=== PATIENT | male | born 1980 | race Caucasian/White ===

== ENCOUNTER 2019-05-01 13:02 | Outpatient (CLI) | payer BC, SELFPAY ==
--- NOTE | 2019-05-01 | XR_ITS ---
WS: [id number] FOOT LEFT TECHNIQUE: 3 views of the left foot CLINICAL INFORMATION: LEFT FOOT PAIN COMPARISON: None. FINDINGS: No evidence of acute fracture or dislocation. Normal tarsal metatarsal alignment. Normal calcaneus. N ormal visualized talar dome. No acute findings. XR/XR foot LT min 3V* [id number] IMPRESSION: Normal left foot.
== END 2019-05-01 13:03 | disposition home or self-care (01) ==
LOC: RADOUTREAD 05-02 08:14
PROVIDERS: PCP Family Medicine; Visit Provider Nurse Practitioner Family
DX: Z76.89 Persons encountering health services in other specified circumstances (principal)

== ENCOUNTER → 2020-02-14 11:05 | Outpatient (BNVA) | payer SELFPAY | PROVIDERS: PCP Family Medicine; Visit Provider Nurse Practitioner Family | DX: I10 Essential (primary) hypertension (principal); J02.9 Acute pharyngitis, unspecified; G43.809 Other migraine, not intractable, without status migrainosus | CPT/HCPCS: 87071; 87880 ==

== ENCOUNTER 2020-06-29 20:04 | Emergency (ER) | payer SELFPAY ==
[2020-06-29 20:24] VITALS: BP 166/100; PULSE 78; RESP 18; TEMP 36.2; O2SAT 98; BMI 31.1
--- NOTE | 2020-06-29 23:12 | CTR_ITS ---
PROCEDURE INFORMATION: Exam: CT Abdomen And Pelvis With Contrast Exam date and time: 06/29/2020 11:58 PM Age: 39 years old Clinical indication: Abdominal pain; Localized; Patient HX: C/O lower abd pain w n/v; Additional info: Lower abdominal pain TECHNIQUE: Imaging protocol: Computed tomography of the abdomen and pelvis with contrast. Radiation optimization: All CT scans at this facility use at least one of these dose optimization techniques: automated exposure control; mA and/or kV adjustment per patient size (includes targeted exams where dose is matched to clinical indication); or iterative reconstruction. Contrast material: OMNI 300; Contrast volume: 95 ml; Contrast route: INTRAVENOUS (IV); COMPARISON: No relevant prior studies available. RADIATION DOSE METRICS: Total DLP (mGy-cm): 1870.1 FINDINGS: Liver: Normal. No mass. Gallbladder and bile ducts: Normal. No calcified stones. No ductal dilation. Pancreas: Normal. No ductal dilation. Spleen: Normal. No splenomegaly. Adrenal glands: Normal. No mass. Kidneys and ureters: Normal. No hydronephrosis. Stomach and bowel: Unremarkable. No obstruction. No mucosal thickening. Appendix: The appendix is visualized and is normal in configuration. Intraperitoneal space: Unremarkable. No free air. No significant fluid collection. Vasculature: Unremarkable. No abdominal aortic aneurysm. Lymph nodes: Unremarkable. No enlarged lymph nodes. Urinary bladder: Unremarkable as visualized. Reproductive: Unremarkable as visualized. Bones/joints: Unremarkable. No acute fracture. Soft tissues: Unremarkable. CT/CT abdomen pelvis w con* [id number] IMPRESSION: There are no acute abdominal findings. Radiation Dose CTDIVOL = (mGy): DLP = 1870.1 (mGy-cm)
--- NOTE | 2020-06-29 23:14 | W.ED.NAVMDI ---
HPI - Nausea/Vomiting/Diarrhea General: Chief complaint: Headache Stated complaint: FEVER, VOMITING, CANT EAT OR DRINK Time Seen by Provider: 06/29/20 23:05 Source: patient Mode of arrival: ambulatory Limitations: no limitations History of Present Illness: HPI Narrative: 39-year-old male patient presents to the emergency department with complaints of nausea vomiting since this morning. He reports not able to hold down his migraine or hypertensive medication. He reports fever earlier, he is afebrile upon exam. He reports back pain and lower abdominal pain. Worse with movement. He denies history of abdominal surgeries, last ate last night. He reports was able to drink a Sprite while in his car, he reports has a burning sensation in his stomach. He reports history of ulcers. He is also complaining of a headache upon exam. He reports his headache is not bad, rates as 2 out of a 10. He denies photophobia, phonophobia or neck pain. 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) Associated symtoms: Reports bloating, decreased urine output, fevers/chills, anorexia, malaise and nausea; Denies anxiety, chest pain, dysuria, headache(s) or palpitations Treatment prior to arrival: none Review of Systems General: Reports: 10 or more systems reviewed and unremarkable except in HPI and below Const: Reports: malaise Eyes: Denies: blurry vision or eye redness ENMT: Denies: throat pain, dental pain or disequilibrium Card: Denies: chest pain, palpitations or irregular heart rhythm Resp: Denies: dyspnea, productive cough, non-productive cough or wheezing GI: Reports: abdominal pain, nausea, vomiting and bloating; Denies: hematemesis, coffee ground emesis, dysphagia, heartburn, diarrhea, constipation, GI cramping or belching : Denies: difficulty urinating, dysuria or urinary urgency Musc: Reports: back pain (lower); Denies: neck pain, joint pain, joint swelling, joint stiffness or muscle weakness Skin/Breast: Denies: rash or pruritus Neuro: Denies: headache(s), weakness in extremities or behavioral changes Psych: Denies: anxiety, depression, mood swings, panic attacks or irritability Juwan/Lymph: Denies: easy bruising Physical Exam Const: COMMON NORMALS: no acute distress, patient oriented x3, alert and well nourished (appears not feeling well) GENERAL APPEARANCE: cooperative, well kempt and well developed ORIENTATION/CONSCIOUSNESS: Yes awake, Yes oriented to person, Yes oriented to place and Yes oriented to time HENMT: COMMON NORMALS: normocephalic, atraumatic, Normal external nose present and moist oral mucous membranes HEAD & SCALP: normal to inspection, normocephalic and atraumatic; no Acrocyanosis present FACE & SINUS: sinuses nontender and face symmetric; no ecchymosis, no erythema and no Acrocyanosis present NOSE: Normal external nose present, Normal nares present and No nasal polyps present MOUTH: lip normal, tongue normal and moist mucous membranes abnormal (dry) THROAT: posterior oropharynx normal, tonsils normal and uvula midline Eye: COMMON NORMALS: Equal, round and reactive pupils present and EOMs intact bilaterally GENERAL EYE: appearance normal, both eyes and all related structures PUPIL: Yes Equal, round and reactive pupils present Neck/C-Spine: COMMON NORMALS: full ROM, no lymphadenopathy and supple GENERAL: Yes normal visual inspection and Yes trachea midline CERVICAL SPINE: Yes cervical ROM normal Lymph: LYMPHATIC: no lymphadenopathy noted Chest: COMMONS NORMALS: normal inspection of the chest and normal palpation of entire chest wall Resp: COMMON NORMALS: normal respiratory effort, No retractions, No use of accessory muscles and clear to auscultation bilaterally EFFORT & INSPECTION: Yes able to speak in complete sentences, No labored and No audible wheezes AUSCULTATION: clear to auscultation bilaterally Cardio: COMMON NORMALS: regular rate, regular rhythm, S1 normal heart sound present, S2 normal heart sound present and Peripheral pulses 2+ throughout RATE: regular rate RHYTHM: regular rhythm HEART SOUNDS: S1 normal heart sound present and S2 normal heart sound present PERIPHERAL PULSES: Peripheral pulses 2+ throughout GI: COMMON NORMALS: Soft to palpation and No hepatosplenomegaly present INSPECTION: No abdominal wall ecchymosis, No Abdominal wall edema, Yes abdominal distension, No central obesity, No visible herniation and No GI erythema present AUSCULTATION: Yes normoactive bowel sounds PALPATION: Yes Soft to palpation, Yes Tenderness to palpation present (GI) Details: LLQ and RLQ and Yes No hepatosplenomegaly present : BLADDER/KIDNEY EXAM: Yes CVA tenderness bilateral Back/Pelvis: COMMON NORMALS: thoracic and lumbar spine normal to inspection THORACIC SPINE/UPPER BACK: Yes normal to inspection, Yes ROM limited and Yes paraspinal muscle tenderness LUMBAR SPINE/LOWER BACK: Yes normal to inspection, Yes ROM limited and Yes paraspinal muscle tenderness Extremity: COMMON NORMALS: normal to inspection, full ROM, capillary refill normal, no calf tenderness and no pedal edema GENERAL: Yes normal exam except as noted Neuro: JULES COMA SCALE: document GCS findings Jules coma scale eye opening: Spontaneous [place] coma scale verbal response: Orientated Jules coma scale motor response: Obey commands Jules coma scale total score: 15 COMMON NORMALS: patient oriented x3, moves all extremities, no focal motor deficits and deep tendon reflexes 2+ bilaterally SENSORIUM/ORIENTATION: Yes alert, Yes oriented to person, Yes oriented to place and Yes oriented to time CRANIAL NERVES: Yes CN normal except as noted COORDINATION/BALANCE: [id number] test normal SPEECH: speech normal GAIT: Yes Normal gait present MOTOR EXAM: 5/5 motor strength present throughout COORDINATION: [id number] test normal Right pupil size (mm): 4 Left pupil size (mm): 4 Psych: COMMON NORMALS: mental status grossly normal, Normal thought process present, cooperative, normal affect, speech normal and activity/motor behavior normal APPEARANCE: Yes well kempt ACTIVITY/MOTOR BEHAVIOR: Yes appropriate eye contact SPEECH: Yes normal speech THOUGHT PROCESS: Normal thought process present Skin: COMMON NORMALS: no rashes or lesions noted, no wounds, turgor normal, no petechiae and no mottling GENERAL SKIN EXAM: no rashes or lesions noted, elasticity normal and turgor normal Course Vital Signs: Vital signs: Vital Signs Temperature 98.1 F 06/30/20 00:29 Pulse Rate 51 L 06/30/20 01:30 Respiratory Rate 14 06/30/20 00:30 Blood Pressure 138/79 06/30/20 01:30 Pulse Oximetry 99 06/30/20 00:30 MDM - Nausea/Vomiting/Diarrhea MDM Narrative: Medical decision making narrative: 39-year-old male patient presents to the emergency department with 1 day onset nausea vomiting, he reports headache, was not able to take Imitrex due to vomiting. He was not able to tolerate his oral routine medications. Complained of lower pelvic and lower abdominal pain, white blood count 12.4 thousand, lactate 2.0, lipase 25, normal, CT scanning of the abdomen pelvis with IV contrast without acute abnormalities. He received Pepcid and Zofran here in the ED which alleviated nausea. He was able to tolerate p.o. fluid. Urinalysis was obtained, trace bacteria, white blood cells and red blood cells were appreciated. I was not able to rule out prostatitis as he did not complain of urinary symptoms such as dysuria, urinary burning or urinary frequency. I was concern for acute bacterial prostatitis with his complaints of lower abdominal pain, results of urinalysis with bacteria and did not exhibit symptoms of dysuria. He declined rectal exam, he was provided Cipro 500 mg twice daily for 4 weeks with follow-up with his primary care this week. Advised to refrain from greasy fried fatty foods until symptoms have completely resolved and he is feeling well. Prescription of Zofran and Pepcid provided. Advised to push fluids and remain hydrated. Lab Data: Labs: Lab Results 06/29/20 06/29/20 06/29/20 Range/Units 23:55 23:55 23:55 WBC 12.4 H (4.0-10.0) 10^3/ uL RBC 4.74 (4.1-5.3) 10^6/u L Hgb 14.6 (11.7-16.6) g/dL Hct 43.4 (42.0-52.0) % MCV 91.6 (80-94) fL MCH 30.8 (28.0-34.0) pg MCHC 33.6 (30.0-36.0) g/dL RDW 12.6 (12.1-15.1) % Plt Count 313 (130-400) 10^3/c mm MPV 11.2 H (7.4-10.4) fL Neut % (Auto) 84.0 % Lymph % (Auto) 8.6 % Canadian % (Auto) 6.9 % Eos % (Auto) 0.0 % Baso % (Auto) 0.2 % Neut # (Auto) 10.43 H (1.8-7.7) 10^3/u L Lymph # (Auto) 1.1 (0.8-4.8) 10^3/u L Canadian # (Auto) 0.9 (0.2-0.9) 10^3/u L Eos # (Auto) 0.0 (0.0-0.8) 10^3/u L Baso # (Auto) 0.0 (0.0-0.1) 10^3/u L Nucleated RBC % (a uto) 0 % Nucleated RBCs # 0.0 /100WBC Sodium 143 (136-145) mmol/L Potassium 3.7 (3.5-5.1) mmol/L Chloride 106 (98-107) mmol/L Carbon Dioxide 21 L (22-29) mmol/L Anion Gap 19.7 H (5-19) BUN 11 (6-20) mg/dL Creatinine 1.0 (0.7-1.2) mg/dL GFR Calculation 83.6 L (90-130) mL/min Glucose 100 (65-115) mg/dL Calculated Osmolal ity 295 (285-295) mOsm/k g Lactate 2.0 (0.5-2.2) mmol/L Calcium 8.9 (8.5-10.5) mg/dL Total Bilirubin 1.0 (0.15-1.2) mg/dL AST 18 (0-40) U/L ALT 20 (0-41) U/L Alkaline Phosphata se 69 (40-130) IU/L Total Protein 7.4 (6.6-8.7) g/dL Albumin 4.7 (3.5-5.2) g/dL Globulin 2.7 (1.3-4.6) g/dL Lipase 25 (13-60) U/L Urine Color (Yellow) Urine Appearance (CLEAR) Urine pH (5-7) Ur Specific Gravit y (1.005-1.030) Urine Protein (Negative) Urine Glucose (UA) (Normal) Urine Ketones (Negative) Urine Blood (Negative) Urine Nitrate (Negative) Urine Bilirubin (Negative) Urine Urobilinogen (Negative) mg/dL Ur Leukocyte Perla ase (Negative) Urine RBC (0-2) /hpf Urine WBC (0-5) /hpf Ur Squamous Epith Cells (0-5) /hpf Amorphous Sediment Urine Bacteria (NONE) /hpf 06/30/20 Range/Units 01:47 WBC (4.0-10.0) 10^3/ uL RBC (4.1-5.3) 10^6/u L Hgb (11.7-16.6) g/dL Hct (42.0-52.0) % MCV (80-94) fL MCH (28.0-34.0) pg MCHC (30.0-36.0) g/dL RDW (12.1-15.1) % Plt Count (130-400) 10^3/c mm MPV (7.4-10.4) fL Neut % (Auto) % Lymph % (Auto) % Canadian % (Auto) % Eos % (Auto) % Baso % (Auto) % Neut # (Auto) (1.8-7.7) 10^3/u L Lymph # (Auto) (0.8-4.8) 10^3/u L Canadian # (Auto) (0.2-0.9) 10^3/u L Eos # (Auto) (0.0-0.8) 10^3/u L Baso # (Auto) (0.0-0.1) 10^3/u L Nucleated RBC % (a uto) % Nucleated RBCs # /100WBC Sodium (136-145) mmol/L Potassium (3.5-5.1) mmol/L Chloride (98-107) mmol/L Carbon Dioxide (22-29) mmol/L Anion Gap (5-19) BUN (6-20) mg/dL Creatinine (0.7-1.2) mg/dL GFR Calculation (90-130) mL/min Glucose (65-115) mg/dL Calculated Osmolal ity (285-295) mOsm/k g Lactate (0.5-2.2) mmol/L Calcium (8.5-10.5) mg/dL Total Bilirubin (0.15-1.2) mg/dL AST (0-40) U/L ALT (0-41) U/L Alkaline Phosphata se (40-130) IU/L Total Protein (6.6-8.7) g/dL Albumin (3.5-5.2) g/dL Globulin (1.3-4.6) g/dL Lipase (13-60) U/L Urine Color Yellow (Yellow) Urine Appearance Clear (CLEAR) Urine pH 5 (5-7) Ur Specific Gravit y 1.010 (1.005-1.030) Urine Protein Neg (Negative) Urine Glucose (UA) Norm (Normal) Urine Ketones 1+ H (Negative) Urine Blood Neg (Negative) Urine Nitrate Negative (Negative) Urine Bilirubin Neg (Negative) Urine Urobilinogen 1 H (Negative) mg/dL Ur Leukocyte Perla ase Trace H (Negative) Urine RBC 0-4 H (0-2) /hpf Urine WBC 0-4 H (0-5) /hpf Ur Squamous Epith Cells 0-4 H (0-5) /hpf Amorphous Sediment Not Reportable Urine Bacteria Trace (NONE) /hpf Imaging Data^: CT Abd/Pel: Radiologist's impression: [place] [address] CT Scan Report Signed Patient: Tyshawn Pichardo #: [id number] : 1980Acct#:[id number] Age/Sex: 39 / MADM Date: 06/29/20 Loc: ERRoom/Bed: Attending Dr: Ordering Provider/Ordering MD: Yovana Tran Date of Service: 06/29/20 Procedure(s): CT abdomen pelvis w con* [id number] Accession Number(s): [id number] Report Number: [id number] PROCEDURE INFORMATION: Exam: CT Abdomen And Pelvis With Contrast Exam date and time: 06/29/2020 11:58 PM Age: 39 years old Clinical indication: Abdominal pain; Localized; Patient HX: C/O lower abd pain w n/v; Additional info: Lower abdominal pain TECHNIQUE: Imaging protocol: Computed tomography of the abdomen and pelvis with contrast. Radiation optimization: All CT scans at this facility use at least one of these dose optimization techniques: automated exposure control; mA and/or kV adjustment per patient size (includes targeted exams where dose is matched to clinical indication); or iterative reconstruction. Contrast material: OMNI 300; Contrast volume: 95 ml; Contrast route: INTRAVENOUS (IV); COMPARISON: No relevant prior studies available. RADIATION DOSE METRICS: Total DLP (mGy-cm): 1870.1 FINDINGS: Liver: Normal. No mass. Gallbladder and bile ducts: Normal. No calcified stones. No ductal dilation. Pancreas: Normal. No ductal dilation. Spleen: Normal. No splenomegaly. Adrenal glands: Normal. No mass. Kidneys and ureters: Normal. No hydronephrosis. Stomach and bowel: Unremarkable. No obstruction. No mucosal thickening. Appendix: The appendix is visualized and is normal in configuration. Intraperitoneal space: Unremarkable. No free air. No significant fluid collection. Vasculature: Unremarkable. No abdominal aortic aneurysm. Lymph nodes: Unremarkable. No enlarged lymph nodes. Urinary bladder: Unremarkable as visualized. Reproductive: Unremarkable as visualized. Bones/joints: Unremarkable. No acute fracture. Soft tissues: Unremarkable. CT/CT abdomen pelvis w con* [id number] IMPRESSION: There are no acute abdominal findings. Radiation Dose CTDIVOL = (mGy): DLP = 1870.1 (mGy-cm) Dictated By:Tayo Marsh MD Signed By:Tayo Marsh MDSigned Date/Time:06/30/20102 DD/ 1 Discharge Plan Discharge Patient Disposition: Home Clinical Impression: Acute bacterial prostatitis Abdominal pain Qualifiers: Abdominal location: lower abdomen, unspecified Qualified Code(s): R10.30 - Lower abdominal pain, unspecified Nausea & vomiting Qualifiers: Vomiting type: unspecified Vomiting Intractability: intractable Qualified Code(s): R11.2 - Nausea with vomiting, unspecified Condition: Stable Prescriptions: New Zofran 4 mg tablet 4 mg PO Q4H Qty: 10 RF: 0 Pepcid 20 mg tablet 20 mg PO BID Qty: 20 RF: 0 ciprofloxacin HCl 500 mg tablet 500 mg PO BID Qty: 60 RF: 0 Discontinued amoxicillin 875 mg tablet 875 mg PO BID 10 Days Qty: 20 RF: 0 No Action Emgality Pen 120 mg/mL pen injector 120 mg SUBCUT .monthly Qty: 1 RF: 6 celecoxib [Celebrex] 200 mg capsule 200 mg PO DAILY Qty: 30 RF: 3 lisinopril 20 mg tablet 20 mg PO DAILY 90 Days Qty: 90 RF: 1 sumatriptan succinate [Imitrex] 100 mg tablet 100 mg PO .COMPLEX PRN (Reason: migraine headache) 30 Days Qty: 9 RF: 5 Discharge Orders: Discharge ED (Routine); Ordered 06/30/20 Ordered By: Yovana Tran Referrals: Yoli Noland MD [Primary Care Provider] - Discharge Diet: Advance as tolerated and Clear Liquid Discharge Activity: Limit activity as instructed Patient Instructions: Prostatitis (ED), Acute Nausea and Vomiting (ED), Abdominal Pain (ED), Opioid Safety Activity Restrictions/Additional Instructions: rest at home today and tomorrow Follow up with your primary care provider Wednesday if not improving You will need to follow up with [facility] next week for ED follow up to ensure urine is clearing, longer dosing of Cirpo, antibiotic may be needed Return to the ED if worsening symptoms such as continued vomiting with use of anti-nausea medication prescribed Clear liquids then advance as tolerated, Sprite, applesauce, bananas, Popsicle, for 48 hours No work today or tomorrow Coding Level of Care Code ED Electric Motor Winder for Chg Fwd Exam Comprehensive
[2020-06-29] MEDS: famotidine 20 mg/2 mL INJ 40 MG IVP (23:44)
[2020-06-29] MEDS: ondansetron 2 mg/ML SDV 2 mL 4 MG IVP (23:44)
[2020-06-29] MEDS: sodium chloride 0.9% 1,000 ML 999 ML IV (23:45)
[2020-06-30 00:13] LABS: Basophils % 0.2 %; Hematocrit 43.4 % (42.0-52.0); Hemoglobin 14.6 g/dL (11.7-16.6); Lymphocytes # 1.1 10^3/uL (0.8-4.8); Lymphocytes % 8.6 %; Mean Corpuscular HGB Conc 33.6 g/dL (30.0-36.0); Mean Corpuscular Hemoglobin 30.8 pg (28.0-34.0); Mean Corpuscular Volume 91.6 fL (80-94); Mean Platelet Volume 11.2 fL (7.4-10.4); Monocytes # 0.9 10^3/uL (0.2-0.9); Monocytes % 6.9 %; Neutrophils # 10.43 10^3/uL (1.8-7.7); Nucleated Red Blood Cells % 0 %; Platelet Count 313 10^3/cmm (130-400); Red Blood Count 4.74 10^6/uL (4.1-5.3); Red Cell Distribution Width 12.6 % (12.1-15.1); White Blood Count 12.4 10^3/uL (4.0-10.0)
[2020-06-30] MEDS: iohexol 300 mg/mL 100 mL Btl IV (00:16)
[2020-06-30 00:27] LABS: Alanine Aminotransferase 20 U/L (0-41); Albumin Level 4.7 g/dL (3.5-5.2); Alkaline Phosphatase 69 IU/L (40-130); Blood Urea Nitrogen 11 mg/dL (6-20); Calcium 8.9 mg/dL (8.5-10.5); Carbon Dioxide 21 mmol/L (22-29); Chloride 106 mmol/L (98-107); Globulin 2.7 g/dL (1.3-4.6); Glomerular Filtration Rate 83.6 mL/min (90-130); Glucose 100 mg/dL (65-115); Lipase 25 U/L (13-60); Osmolality Calculated 295 mOsm/kg (285-295); Sodium 143 mmol/L (136-145); Total Protein 7.4 g/dL (6.6-8.7)
[2020-06-30 00:29] VITALS: PULSE 48; RESP 13; TEMP 36.7; O2SAT 96
[2020-06-30 00:30] VITALS: BP 142/80; RESP 14; O2SAT 99
[2020-06-30 00:35] LABS: Anion Gap 19.7 (5-19); Aspartate Amino Transferase 18 U/L (0-40); Potassium 3.7 mmol/L (3.5-5.1)
[2020-06-30] MEDS: ketorolac 30 mg/mL INJ IVP (01:17)
[2020-06-30 01:30] VITALS: BP 138/79; PULSE 51
[2020-06-30 01:57] LABS: Urine Appearance Clear (CLEAR); Urine Color Yellow (Yellow); pH Urine 5 (5-7)
[2020-06-30 01:58] LABS: Add Urine Microscopic? YES; Bilirubin Urine Neg (Negative); Blood Urine Neg (Negative); Glucose Urine UA Norm (Normal); Ketones Urine 1+ (Negative); Leukocyte Esterase Urine Trace (Negative); Nitrate Urine Negative (Negative); Protein Urine Neg (Negative); RBC Urine 0-4 /hpf (0-2); Squamous Epithelial Cell Urine 0-4 /hpf (0-5); Urobilinogen Urine 1 mg/dL (Negative); WBC Urine 0-4 /hpf (0-5)
[2020-06-30 01:59] LABS: Add Urine Culture? No; Bacteria Urine TRACE /hpf
[2020-06-30] MEDS: ciprofloxacin 500 mg Tablet PO (02:05)
[2020-06-30 02:29] VITALS: RESP 15; O2SAT 100
== END 2020-06-30 02:31 | disposition home or self-care (01) ==
PROVIDERS: Emergency Provider Nurse Practitioner Family; PCP Family Medicine
DX: N41.0 Acute prostatitis (principal); B96.89 Other specified bacterial agents as the cause of diseases classified elsewhere
CPT/HCPCS: 74177; 80053; 81001; 83605; 83690; 85025; 96361; 96374; 96375; 99284; J1885; J2405; J3490; J7030; Q9967

== ENCOUNTER 2022-01-03 18:33 | Inpatient (IN) | payer OTHER, SELFPAY ==
[2022-01-03 18:47] VITALS: BP 158/99; PULSE 79; RESP 17; TEMP 36.5; O2SAT 98; BMI 29.1
--- NOTE | 2022-01-03 18:55 | W.ED.EXTPRO ---
HPI - Extremity Problem General: Chief complaint: Extremity Injury, Upper Stated complaint: left hand swelling Time Seen by Provider: 01/03/22 18:55 History of Present Illness: Mr. Pichardo is a 41-year-old male with history of hypertension not currently on antihypertensives who presents to the emergency department due to concern over arm infection. Apparently at work 4 days ago he cut his hand on a piece of metal. Throughout the night he had increased swelling that is since progressed associated with redness. He was seen and received tetanus shot and also received a prescription for Bactrim which he has been taking for approximately 3 doses so far. Despite this redness continues to spread along the swelling. He has had fevers and chills as well as some nausea and vomiting. Intensity symptoms is moderate. Course has worsened. No other specific changes in health, exacerbating, or alleviating factors identified. Onset (ago): day(s) Location: left and upper extremity Radiation: proximal Exacerbating factors: range of motion and palpation Associated symptoms: Reports fever(s) and other Review of Systems General: Reports: 10 or more systems reviewed and unremarkable except in HPI and below Const: Reports: fever(s) PFSH ED PFSH: Medical History Hypertension Surgical History History of surgery on lower extremity Social History Smoking and tobacco status: never smoked Physical Exam Const: COMMON NORMALS: alert GENERAL APPEARANCE: cooperative and well developed HENMT: COMMON NORMALS: normocephalic and atraumatic HEAD & SCALP: normocephalic and atraumatic Eye: COMMON NORMALS: conjunctivae normal CONJUNCTIVA: Yes conjunctivae normal SCLERA: sclerae normal Neck/C-Spine: COMMON NORMALS: supple GENERAL: Yes trachea midline Resp: COMMON NORMALS: clear to auscultation bilaterally EFFORT & INSPECTION: Yes able to speak in complete sentences AUSCULTATION: clear to auscultation bilaterally Cardio: COMMON NORMALS: regular rate and regular rhythm RATE: regular rate RHYTHM: regular rhythm GI: COMMON NORMALS: Soft to palpation PALPATION: Yes Soft to palpation and No Tenderness to palpation present (GI) Extremity: NARRATIVE EXTREMITY EXAM: Significant swelling and erythema with the swelling primarily located on the dorsal aspect of the hand mostly sparing all but the proximal digits. There is a laceration approximately 1 cm with overlying scab just over the second PIP region. erythema tracks all the way to elbow with mild streaking proximal to this mostly on the bicep surface. There is associated warmth and tenderness with palpation and range of motion. Pulses are intact. No sensory compromise or obvious motor compromise. GENERAL: Yes normal exam except as noted and Yes edema Neuro: COMMON NORMALS: moves all extremities SENSORIUM/ORIENTATION: Yes alert and No Orientation impaired Psych: COMMON NORMALS: mental status grossly normal and Normal thought process present THOUGHT PROCESS: Normal thought process present Course Vital Signs: Vital signs: Vital Signs Temperature 98.3 F 01/06/22 16:00 Pulse Rate 48 L 01/06/22 16:00 Respiratory Rate 16 01/06/22 16:00 Blood Pressure 168/93 01/06/22 16:00 Pulse Oximetry 98 01/06/22 16:00 Oxygen Delivery Me thod 01/06/22 11:59 MDM - Extremity (Nontraumatic) Medical Decision Making 41-year-old gentleman presenting with arm swelling after laceration in the elbow likely contaminated environment. Patient previously seen and initiated on antibiotics as well as tetanus shot being updated. Patient has significant evidence of cellulitis with proximal spreading on exam. Labs notable for marked leukocytosis, normal hemoglobin. Metabolic panel with evidence of significant JEROME. Inflammatory markers significantly elevated. Etiology of JEROME is somewhat unclear though may be related to Bactrim. Patient has noticed change in urinary volume. Patient declined x-ray. Antibiotics ordered. Fluids ordered. Most likely etiology of patient's symptoms is cellulitis which has failed outpatient therapy and JEROME. The results of ED evaluation were discussed with the patient including plan for admission due to requirement for level of care not available if discharged to prevent significant worsening/deterioration. Patient agreeable with plan. Discussed with hospitalist service and patient admitted for further management. Medical Records I reviewed the patient's medical records. Lab Data I reviewed the patient's lab results. : 01/06/22 04:32 01/06/22 04:32 Radiology Impressions Renal Ultrasound 01/03/22 22:46 IMPRESSION: 1. Unremarkable urinary bladder. 2. Hydronephrosis. 3. No medical renal disease. Hand CT 01/06/22 09:10 IMPRESSION: 1. Diffuse soft tissue edema along the dorsal surface of the wrist and hand. Most consistent with advanced cellulitis. 2. No abscess. 3. No evidence air in the soft tissue. Laboratory Results WBC 24.7 10^3/uL (4.0-10.0) H 01/03/22 19:18 RBC 3.79 10^6/uL (4.1-5.3) L 01/03/22 19:18 Hgb 11.9 g/dL (11.7-16.6) 01/03/22 19:18 Hct 34.9 % (42.0-52.0) L 01/03/22 19:18 MCV 92.1 fl (80-94) 01/03/22 19:18 MCH 31.4 pg (28.0-34.0) 01/03/22 19:18 MCHC 34.1 g/dL (30.0-36.0) 01/03/22 19:18 RDW 13.7 % (12.1-15.1) 01/03/22 19:18 Plt Count 312 10^3/cmm (130-400) 01/03/22 19:18 MPV 11.2 fL (7.4-10.4) H 01/03/22 19:18 Neut % (Auto) 89.2 % 01/03/22 19:18 Lymph % (Auto) 1.4 % 01/03/22 19:18 [place] % (Auto) 4.2 % 01/03/22 19:18 Eos % (Auto) 0.1 % 01/03/22 19:18 Baso % (Auto) 0.3 % 01/03/22 19:18 Neut # (Auto) 21.98 10^3/uL (1.8-7.7) H 01/03/22 19:18 Lymph # (Auto) 0.4 10^3/uL (0.8-4.8) L 01/03/22 19:18 [place] # (Auto) 1.0 10^3/uL (0.2-0.9) H 01/03/22 19:18 Eos # (Auto) 0.0 10^3/uL (0.0-0.8) 01/03/22 19:18 Baso # (Auto) 0.1 10^3/uL (0.0-0.1) 01/03/22 19:18 Nucleated RBC % (auto) 0 % 01/03/22 19:18 Nucleated RBCs # 0.0 /100WBC 01/03/22 19:18 ESR 31 mm/hr (0-10) H 01/03/22 19:18 Sodium 132 mmol/L (136-145) L 01/03/22 19:18 Potassium 3.8 mmol/L (3.5-5.1) 01/03/22 19:18 Chloride 96 mmol/L (98-107) L 01/03/22 19:18 Carbon Dioxide 21 mmol/L (22-29) L 01/03/22 19:18 Anion Gap 18.8 (5-19) 01/03/22 19:18 BUN 50 mg/dL (6-20) H 01/03/22 19:18 Creatinine 3.6 mg/dL (0.7-1.2) H 01/03/22 19:18 GFR Calculation 18.9 mL/min (90-130) L 01/03/22 19:18 Glucose 90 mg/dL (65-115) 01/03/22 19:18 Calculated Osmolality 287 mOsm/kg (285-295) 01/03/22 19:18 Lactic Acid 0.8 mmol/L (0.5-2.2) 01/03/22 19:18 Calcium 9.3 mg/dL (8.5-10.5) 01/03/22 19:18 Total Bilirubin 0.4 mg/dL (0.15-1.2) 01/03/22 19:18 AST 30 U/L (0-40) 01/03/22 19:18 ALT 28 U/L (0-41) 01/03/22 19:18 Alkaline Phosphatase 120 U/L (40-130) 01/03/22 19:18 Creatine Kinase 232 U/L (39-308) 01/03/22 19:18 C-Reactive Protein 390.8 mg/L (0.0-4.9) H 01/03/22 19:18 Total Protein 7.7 g/dL (6.6-8.7) 01/03/22 19:18 Albumin 3.8 g/dL (3.5-5.2) 01/03/22 19:18 Globulin 3.9 g/dL (1.3-4.6) 01/03/22 19:18 Discharge Plan Discharge Patient Disposition: Admitted As Inpatient Admit Provider: Ninfa Devi Clinical Impression: Cellulitis, JEROME (acute kidney injury) Condition: Stable Coding Level of Care Code ED Payroll Officer for [facility] Exam Comprehensive
[2022-01-03] MEDS: piperacillin-tazobactam 4.5 GM in sodium chloride 0.9% (plus) 50 ML IV (19:34)
[2022-01-03 19:53] LABS: Basophils # 0.1 10^3/uL (0.0-0.1); Basophils % 0.3 %; Eosinophils % 0.1 %; Hematocrit 34.9 % (42.0-52.0); Hemoglobin 11.9 g/dL (11.7-16.6); Lymphocytes # 0.4 10^3/uL (0.8-4.8); Lymphocytes % 1.4 %; Mean Corpuscular HGB Conc 34.1 g/dL (30.0-36.0); Mean Corpuscular Hemoglobin 31.4 pg (28.0-34.0); Mean Corpuscular Volume 92.1 fl (80-94); Mean Platelet Volume 11.2 fL (7.4-10.4); Monocytes % 4.2 %; Neutrophils # 21.98 10^3/uL (1.8-7.7); Neutrophils % 89.2 %; Nucleated Red Blood Cells % 0 %; Platelet Count 312 10^3/cmm (130-400); Red Blood Count 3.79 10^6/uL (4.1-5.3); Red Cell Distribution Width 13.7 % (12.1-15.1); White Blood Count 24.7 10^3/uL (4.0-10.0)
[2022-01-03 20:01] LABS: Erythrocyte Sedimentation Rate 31 mm/hr (0-10)
[2022-01-03 20:10] LABS: Lactic Sepsis W/Reflex 0.8 mmol/L (0.5-2.2)
[2022-01-03 20:16] LABS: Alanine Aminotransferase 28 U/L (0-41); Albumin Level 3.8 g/dL (3.5-5.2); Alkaline Phosphatase 120 U/L (40-130); Anion Gap 18.8 (5-19); Aspartate Amino Transferase 30 U/L (0-40); Blood Urea Nitrogen 50 mg/dL (6-20); Calcium 9.3 mg/dL (8.5-10.5); Carbon Dioxide 21 mmol/L (22-29); Chloride 96 mmol/L (98-107); Globulin 3.9 g/dL (1.3-4.6); Glomerular Filtration Rate 18.9 mL/min (90-130); Glucose 90 mg/dL (65-115); Osmolality Calculated 287 mOsm/kg (285-295); Potassium 3.8 mmol/L (3.5-5.1); Sodium 132 mmol/L (136-145); Total Bilirubin 0.4 mg/dL (0.15-1.2); Total Protein 7.7 g/dL (6.6-8.7)
[2022-01-03 20:30] LABS: C Reactive Protein 390.8 mg/L (0.0-4.9)
[2022-01-03] MEDS: sodium chloride 0.9% 1,000 ML 999 ML IV (20:49)
[2022-01-03 20:58] LABS: Creatine Phosphokinase 232 U/L (39-308)
[2022-01-03] MEDS: acetaminophen 1,000 MG/100 ML PIGGYBACK 400 MG IV (21:04)
[2022-01-03 21:06] VITALS: BP 149/91; PULSE 80; RESP 17; TEMP 36.8; O2SAT 98
[2022-01-03 21:09] VITALS: RESP 12
[2022-01-03] MEDS: morphine 4 mg/mL SDV 1 mL IVP (21:09)
[2022-01-03] MEDS: ondansetron 2 mg/ML SDV 2 mL 4 MG IVP (21:09)
[2022-01-03 21:59] LABS: Specific Gravity, Urine 1.015 (1.005-1.030); Urine Appearance Clear (CLEAR); Urine Color Yellow (Yellow); pH Urine 5 (5-7)
[2022-01-03 22:00] LABS: Add Urine Microscopic? YES; Bilirubin Urine Neg (Negative); Blood Urine 3+ (Negative); Glucose Urine UA Norm (Normal); Ketones Urine Negative (Negative); Leukocyte Esterase Urine Negative (Negative); Nitrate Urine Negative (Negative); Protein Urine Trace (Negative); Urobilinogen Urine Neg (Negative)
[2022-01-03 22:01] VITALS: BP 145/93; PULSE 69; RESP 18; TEMP 36.8; O2SAT 98
[2022-01-03 22:07] LABS: Squamous Epithelial Cell Urine 0-4 /hpf (0-5)
[2022-01-03 22:09] LABS: Amorphous Sediment Urine TRACE /hpf; Bacteria Urine TRACE /hpf; Coarse Granular Casts Urine RARE /lpf; Hyaline Casts Urine RARE /lpf; Mucus Urine 1+ /hpf
[2022-01-03 22:10] LABS: Add Urine Culture? Yes
--- NOTE | 2022-01-03 22:46 | USR_ITS ---
PROCEDURE INFORMATION: Exam: US Retroperitoneal; Complete; Kidneys and Bladder Exam date and time: 01/03/2022 11:09 PM Age: 41 years old Clinical indication: Condition or disease; Other: Blood work gurjit; Patient HX: Gurjit no know history of kidney disease; Additional info: Evalute for hydronpehrosis, gurjit, evaluate for bladder outlet obstruction, hydronephrosis TECHNIQUE: Imaging protocol: Real-time ultrasound of the retroperitoneum with image documentation. Complete exam focused on the kidneys and bladder. COMPARISON: CT abdomen pelvis w con* [id number] 06/30/2020 12:28 AM FINDINGS: Right kidney: 12.4 x 7.2 x 6.6 cm right kidney. 2.1 cm right renal cortex. Left kidney: 12.3 x 6.2 x 5.8 cm left kidney. 2.0 cm left renal cortex. Urinary bladder: Unremarkable urinary bladder. Prostate: 2.9 x 3.2 x 3.5 cm normal size prostate. US/US renal BI* [id number] IMPRESSION: 1. Unremarkable urinary bladder. 2. Hydronephrosis. 3. No medical renal disease.
--- NOTE | 2022-01-03 22:52 | P.HP_ITS ---
Providers/Chief Complaint Admitting Physician: Ninfa Devi MD Chief Complaint: left hand swelling History of Present Illness Tyshawn Pichardo is a 41 year old male with a past medical history of hypertension, migraine, does not take any medications pleurodesed past several months, presenting today with 3-day history of left hand swelling. States that swelling started shortly after obtaining a small cut over his second digit. Thi s Was from an iron grate on Wednesday. Thereafter he had some friction by putting his hands repeatedly in his pockets. 3 days ago he noticed that his hand was swelling up, with swelling erythema and warmth quickly extending over his wrist and forearm. He also noticed some lymphangitic streaks. Visited urgent care as outpatient where he was started on Bactrim. He took Bactrim double strength twice daily on day 1, however he was not satisfied with the speed of improvement therefore increase Bactrim frequency to 1 double strength tablet every 4 hours yesterday. He has also noticed dysuria, some burning in his urine, he is not peeing as much as he usually does. Typically has nighttime frequency of 8-10 urination episodes, however 2 days ago states he had much less urine output. He has also had a fever, as high as 101 Fahrenheit along with chills at home. No recent animal bites or scratches. 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 Job involves physically moving the animals, does not typically clean up after the animals. No aquarium exposure. Review of Systems General: Reports: 10 or more systems reviewed and unremarkable except in HPI and below Const: Reports: fever(s), chills and body aches Eyes: Denies: change in vision, blurry vision or photophobia ENMT: Reports: hoarseness; Denies: throat pain, enlarged tonsils, odynophagia or nasal congestion Card: Denies: chest pain, palpitations, irregular heart rhythm, edema, swelling of feet/ankles, lightheadedness, pre-syncope, dyspnea on exertion or orthopnea Resp: Denies: dyspnea, productive cough, non-productive cough, wheezing, stridor, pain on inspiration, change in phlegm color, hemoptysis or chest congestion GI: Denies: abdominal pain, nausea, vomiting, hematemesis, coffee ground emesis, dysphagia, heartburn, diarrhea, constipation, GI cramping, change in stool character, hematochezia or melena : Denies: flank pain, dysuria, urinary frequency, urinary urgency, urinary hesitancy or hematuria Musc: Denies: neck pain, back pain, extremity pain, joint swelling, joint warmth or deformity Neuro: Denies: headache(s), numbness in extremities, weakness in extremities, sensory changes, difficulty walking, frequent falls, dizziness, vertigo, behav ioral changes, Slurred speech present or seizure-like activity Psych: Denies: anxiety, depression, suicidal ideation or homicidal ideation Endo: Denies: polyuria, polydipsia, tired all the time, cold intolerance or hot flashes Juwan/Lymph: Denies: easy bruising or easy bleeding Medications/Allergies Home Medications Medication Instructions Recorded Confirmed Last Taken Type celecoxib 200 mg capsule (Celebrex) 200 mg PO DAILY #30 caps 03/29/19 02/14/20 Unknown Rx galcanezumab-gnlm 120 mg/mL 120 mg SUBCUT .monthly #1 mL 03/29/19 02/14/20 Unknown Rx subcutaneous pen injector (Emgality Pen) lisinopril 20 mg tablet 20 mg PO DAILY 90 days #90 tabs 02/14/20 02/14/20 Unknown Rx ciprofloxacin HCl 500 mg tablet 500 mg PO BID #60 tabs 06/30/20 Unknown Rx famotidine 20 mg tablet (Pepcid) 20 mg PO BID #20 tabs 06/30/20 Unknown Rx ondansetron HCl 4 mg tablet 4 mg PO Q4H 3 doses #10 tabs 06/30/20 Unknown Rx (Zofran) sumatriptan succinate 100 mg 100 mg PO .COMPLEX PRN migraine 09/05/20 Unknown Rx tablet (Imitrex) headache 30 days #9 tabs Allergies Allergy/AdvReac Type Severity Reaction Status Date / Time No Known Allergies Allergy Verified 02/14/20 10:25 PFSH Acute PFSH: Medical History Hypertension Surgical History History of surgery on lower extremity Social History Smoking and tobacco status: never smoked Vitals/I&O/Wt Last Vital Signs Temp 98.2 F 01/03/22 22:01 Pulse 69 01/03/22 22:01 Resp 18 01/03/22 22:01 BP 145/93 01/03/22 22:01 Pulse Ox 98 01/03/22 22:01 O2 Del Method 01/03/22 22:01 01/03/22 01/03/22 01/03/22 06:59 14:59 22:59 Intake Total 286.667 / 286.667 Output Total 200 / 200 Balance 86.667 / 86.667 Weight last 48 hrs Weight 97.432 kg Physical Exam Narrative: General: No acute distress, AO x3 HEENT: PERRLA, pupils bilaterally equal and reactive, pallors not present Chest: Normal vesicular breath sounds, no added sounds, equal good air entry bilaterally CVS: S1-S2 regular, no murmurs, no tachycardia, no gallops, no rubs Abdomen: Soft, nontender, no organomegaly, bowel sounds present Neuro: No focal deficits, no facial deformity, AO x3, power 5/5 in all limbs Extremities: Left hand swollen, warm, erythematous, painful to touch, with changes involving the entire hand and extending up to wrist and forearm. Unable to form a fist. No neurovascular deficit. Data : 01/03/22 19:18 01/03/22 19:18 Micro: Microbiology 01/03/22 19:34 Blood Culture - Preliminary Blood SPECIMEN COLLECTED 01/03/22 19:18 Blood Culture - Preliminary Blood SPECIMEN COLLECTED A&P Assessment and plan (1) Cellulitis: (2) Lymphangitis: (3) JEROME (acute kidney injury): Plan Admitted today for cellulitis and lymphangitis of the left hand extending up to the forearm. He has been on outpatient Bactrim without any significant improvement. Admitted to [facility], started on broad-spectrum antibiotic coverage with piperacillin tazobactam and vancomycin. Both antibiotics would need to be renally dosed for his current JEROME. Labs also noted. For acute kidney injury with a creatinine of 3.6. Patient has no past history of JEROME, though he does have hypertension which is uncontrolled. He does not typically check his blood pressure numbers at home. Possibility that JEROME may be related to excessive Bactrim use over the last 48 hours. He does not appear to be grossly dehydrated. A year ago he was diagnosed with prostatitis and does relate some symptoms of prostatomegaly such as urinary stream hesitancy and incomplete emptying. Will check CPK right now for rhabdomyolysis, noted positive blood on UA. IV fluid normal saline at 75 cc an hour Strict output charting, patient is currently able to void without difficulty in the urinal. Renal ultrasound to evaluate for any hydronephrosis or bladder outlet obstruction. Attestations Medical Necessity Statement*: Anticipate greater than 2 midnight admission for management of left arm swelling and lymphangitis, with rapid progression and spite of outpatient antibiotic therapy. Coding Level of Care Code Acute Glass Wool Blanket Machine Feeder [facility] Diagnoses Cellulitis L03.90 Lymphangitis I89.1 JEROME (acute kidney injury) N17.9
--- NOTE | 2022-01-03 22:53 | PC.NURSE ---
Home meds: Patient states he no longer takes the list of medications in the EMR. The only medicine he has been taking is Bactrim.
[2022-01-03] MEDS: sodium chloride 0.9% 1,000 ML 75 ML IV (23:07)
[2022-01-03] MEDS: heparin 5,000 unit/mL INJ 1 mL 5000 UNIT SUBCUT (23:07)
--- NOTE | 2022-01-03 23:18 | PC.PHAR ---
Pharmacokinetic dosing service Date: 01/03/22 Time: 2329 Objective: Patient: Tyshawn Pichardo Floor: 252-2 Age: 41 yo Serum creatinine: 3.6 mg/dL Height: 72.0 Inches Weight (kg): 97.432 Diagnosis: Relevant medical/social history: Cultures and sensitivities: Other labs: Assessment: IBW (kg): 77.60 Dosing wt(kg): 97.432 Estimated Creatinine clearance (ml/min): 29.9 CRCL method: Cockcroft and Gault using ibw(default). Drug selected: Vancomycin Loading dose (mg): 0 Vd (liters): 87.7 (factor used: 0.9 L/kg) Jori (hr-1): 0.029 Half life (hrs): 23.90 Recommended dose: 1250 mg Interval: 24 hrs Infusion time (hrs): 1.5 Predicted peak (mcg/mL): 27.8 Predicted trough (mcg/mL): 14.48 Total body weight is being used for vancomycin dosing. Renal function is stable [ ] /unstable [ ] Recommendations: Give Vancomycin 1250 mg q 24 hrs with an expected Cpeak of 27.8 mcg/ml and an expected Ctrough of 14.48 mcg/ml Renal dosing of other antibiotics (review renal dosing of other medications and list guidelines here): Thank you for the consult, will continue to follow. Signature: [facility]
[2022-01-03 23:55] VITALS: BP 138/87; PULSE 67; RESP 16; TEMP 36.8; O2SAT 98
[2022-01-04] VITALS (11 sets, daily range): BP systolic 128–142; BP diastolic 77–87; PULSE 60–71; RESP 16–20; TEMP 36.6–37.2; O2SAT 96–98
[2022-01-04] MEDS: morphine 4 mg/mL SDV 1 mL 2 MG IVP ×5 (01:09→23:23)
[2022-01-04] MEDS: piperacillin-tazobactam 3.375 GM in sodium chloride 0.9% (plus) 50 ML IV ×2 (05:33→23:27)
[2022-01-04 05:48] LABS: Creatine Phosphokinase 140 U/L (39-308)
--- NOTE | 2022-01-04 08:00 | PC.NURSE ---
PT rated left hand pain 4 out of 10, declined pain medication.
[2022-01-04] MEDS: pantoprazole DR 40 mg Tablet PO (08:57)
--- NOTE | 2022-01-04 12:10 | PM.PN ---
Subjective Subjective: Seen this morning. No acute events overnight. Swelling is reportedly better however redness still present. Vitals/I&O/Wt Last Vital Signs Temp 98.5 F 01/04/22 11:33 Pulse 69 01/04/22 11:33 Resp 16 01/04/22 11:33 BP 142/81 01/04/22 11:33 Pulse Ox 98 01/04/22 11:33 O2 Del Method 01/04/22 11:33 01/03/22 01/04/22 01/04/22 22:59 06:59 14:59 Intake Total 1886.667 / 1886.667 510 / 2396.667 410 / 410 Output Total 200 / 200 420 / 620 Balance 1686.667 / 1686.667 90 / 1776.667 410 / 410 Weight last 48 hrs Weight 97.432 kg Physical Exam Narrative: General: No acute distress, AO x3 Chest: Normal vesicular breath sounds, no added sounds, equal good air entry bilaterally CVS: S1-S2 regular, no murmurs, no tachycardia, no gallops, no rubs Abdomen: Soft, nontender, no organomegaly, bowel sounds present Extremities: Left hand swollen, warm, slightly erythematous, with changes involving the entire hand and extending up to wrist and forearm. Able to somewhat form half a fist fist today no neurovascular deficit. Improved compared to last night as per patient. Data : 01/03/22 19:18 01/03/22 19:18 Micro: Microbiology 01/03/22 19:34 Blood Culture - Preliminary Blood SPECIMEN COLLECTED 01/03/22 19:18 Blood Culture - Preliminary Blood SPECIMEN COLLECTED A&P Assessment and plan (1) Cellulitis: (2) Lymphangitis: (3) JEROME (acute kidney injury): Plan Admitted today for cellulitis and lymphangitis of the left hand extending up to the forearm. He has been on outpatient Bactrim without any significant improvement. Admitted to [facility], started on broad-spectrum antibiotic coverage with piperacillin tazobactam and vancomycin. Both antibiotics would need to be renally dosed for his current JEROME. Labs also noted. For acute kidney injury with a creatinine of 3.6. Patient has no past history of JEROME, though he does have hypertension which is uncontrolled. He does not typically check his blood pressure numbers at home. Possibility that JEROME may be related to excessive Bactrim use over the last 48 hours. He does not appear to be grossly dehydrated. A year ago he was diagnosed with prostatitis and does relate some symptoms of prostatomegaly such as urinary stream hesitancy and incomplete emptying. Will check CPK right now for rhabdomyolysis, noted positive blood on UA. IV fluid normal saline at 75 cc an hour Strict output charting, patient is currently able to void without difficulty in the urinal. Renal ultrasound to evaluate for any hydronephrosis or bladder outlet obstruction.\ Continue above management. Recheck labs tomorrow Attestations Medical Necessity Statement*: Possible discharge in next 24 to 48 hours pending creatinine improvement and cellulitis. 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
[2022-01-04] MEDS: piperacillin-tazobactam 3.375 GM in sodium chloride 0.9% (plus) 50 ML 1 GM IV (14:29)
[2022-01-04] MEDS: sodium chloride 0.9% 1,000 ML 75 ML IV (17:54)
--- NOTE | 2022-01-04 20:11 | PC.NURSE ---
Bedside report completed at this time with CAMILA Gonzalez Shift Note: pt rested in bed most of shift. Left hand redness remains up near elbow/AC it has not increased this shift. His hand remains puffy and reddened, no pittting or drainage noted. Skin is not taunt. Pt remained afebrile VSS. SOme complaints of pain in left hand, more a pressure and a throb per pt. Morphine IV admin twice this shift. Good appetite noted. URine output of 1100, clear yellow urine. Frequent safety and comfort rounds continue. Orders and/or nursing care completed as indicated. Patient monitored for response to intervention and treatment(s). Education provided includes heparin, morphine , protonix, taking medications as prescribed and saldana of care. Patient and/or order entry representative verbalized understanding of plan of care and all topics discussed. Will continue to monitor.
[2022-01-04] MEDS: vancomycin 1,250 MG/250 ML PIGGYBACK 250 MG IV (21:36)
[2022-01-04] MEDS: heparin 5,000 unit/mL INJ 1 mL 5000 UNIT SUBCUT (22:47)
[2022-01-05] VITALS (9 sets, daily range): BP systolic 116–165; BP diastolic 77–97; PULSE 53–73; RESP 16–18; TEMP 36.6–36.8; O2SAT 97–99
[2022-01-05 04:49] LABS: Basophils % 0.4 %; Eosinophils # 0.1 10^3/uL (0.0-0.8); Eosinophils % 1.1 %; Hematocrit 32.4 % (42.0-52.0); Hemoglobin 10.5 g/dL (11.7-16.6); Lymphocytes # 0.7 10^3/uL (0.8-4.8); Lymphocytes % 6.9 %; Mean Corpuscular HGB Conc 32.4 g/dL (30.0-36.0); Mean Corpuscular Hemoglobin 30.9 pg (28.0-34.0); Mean Corpuscular Volume 95.3 fl (80-94); Mean Platelet Volume 11.1 fL (7.4-10.4); Monocytes # 0.6 10^3/uL (0.2-0.9); Neutrophils % 85.1 %; Nucleated Red Blood Cells % 0 %; Platelet Count 279 10^3/cmm (130-400); Red Cell Distribution Width 14.4 % (12.1-15.1); White Blood Count 10.1 10^3/uL (4.0-10.0)
[2022-01-05 05:19] LABS: Anion Gap 14.1 (5-19); Blood Urea Nitrogen 28 mg/dL (6-20); Calcium 8.8 mg/dL (8.5-10.5); Carbon Dioxide 20 mmol/L (22-29); Chloride 107 mmol/L (98-107); Glomerular Filtration Rate 51.8 mL/min (90-130); Glucose 90 mg/dL (65-115); Magnesium 2.3 mg/dL (1.7-2.3); Osmolality Calculated 289 mOsm/kg (285-295); Potassium 4.1 mmol/L (3.5-5.1); Sodium 137 mmol/L (136-145)
[2022-01-05] MEDS: piperacillin-tazobactam 3.375 GM in sodium chloride 0.9% (plus) 50 ML IV ×3 (05:53→22:43)
[2022-01-05] MEDS: morphine 4 mg/mL SDV 1 mL 2 MG IVP ×4 (06:00→19:50)
[2022-01-05] MEDS: pantoprazole DR 40 mg Tablet PO (09:52)
[2022-01-05] MEDS: acetaminophen 325 mg Tablet 650 MG PO ×2 (09:52→19:51)
[2022-01-05] MEDS: heparin 5,000 unit/mL INJ 1 mL 5000 UNIT SUBCUT (12:08)
[2022-01-05] MEDS: sodium chloride 0.9% 1,000 ML 75 ML IV (12:08)
--- NOTE | 2022-01-05 13:49 | PM.PN ---
Subjective Subjective: Creatinine improved to 1.5 today. WBC count down to 10.1. Patient able to make a better fist than yesterday but not a tight fist yet. Swelling still present in his hand. Patient has refused to see a primary care doctor as per social science professor this morning. Vitals/I&O/Wt Last Vital Signs Temp 98.3 F 01/05/22 12:00 Pulse 57 L 01/05/22 12:00 Resp 16 01/05/22 12:00 BP 143/89 01/05/22 12:00 Pulse Ox 97 01/05/22 12:00 O2 Del Method 01/05/22 12:00 01/04/22 01/05/22 01/05/22 22:59 06:59 14:59 Intake Total 648.75 / 1890.00 308.967 / 2198.967 1050 / 1050 Output Total 1000 / 2100 Balance 648.75 / 790.00 -691.033 / 98.967 1050 / 1050 Weight last 48 hrs Weight 97.432 kg Physical Exam Narrative: General: No acute distress, AO x3 Chest: Normal vesicular breath sounds, no added sounds, equal good air entry bilaterally CVS: S1-S2 regular, Abdomen: Soft, nontender, no organomegaly, bowel sounds present Extremities: Left hand swollen, significant improvement since yesterday. Erythema has almost resolved from harm as well. Data : 01/05/22 04:23 01/05/22 04:23 Micro: Microbiology 01/03/22 21:45 Urine Culture - Final Urine,Clean Catch 01/03/22 19:34 Blood Culture - Preliminary Blood NEGATIVE TO DATE 01/03/22 19:18 Blood Culture - Preliminary Blood NEGATIVE TO DATE A&P Assessment and plan (1) Cellulitis: (2) Lymphangitis: (3) JEROME (acute kidney injury): Plan Admitted today for cellulitis and lymphangitis of the left hand extending up to the forearm. He has been on outpatient Bactrim without any significant improvement. Continue Vanco and Zosyn at this time. switch to oral antibiotics tomorrow JEROME improving. Creatinine 1.5 today. Hypertension: Add amlodipine 5 mg daily. CPK normal. IV fluid normal saline at 75 cc an hour No hydronephrosis. Renal ultrasound unremarkable. Discussed with radiologist as well. We will repeat UA today. Continue above management. Recheck labs tomorrow Attestations Medical Necessity Statement*: Plan to discharge over the next 24 to 48 hours. Patient will need to stay in the hospital in the meantime to continue IV antibiotics. Coding Level of Care Code Acute Account Resolution Specialist for [facility] Diagnoses Cellulitis L03.90 Lymphangitis I89.1 JEROME (acute kidney injury) N17.9
[2022-01-05] MEDS: vancomycin 1,250 MG/250 ML PIGGYBACK 250 MG IV (19:54)
[2022-01-06] VITALS (10 sets, daily range): BP systolic 130–170; BP diastolic 69–99; PULSE 48–64; RESP 16–18; TEMP 36.6–36.9; O2SAT 97–100
[2022-01-06] MEDS: morphine 4 mg/mL SDV 1 mL 2 MG IVP ×4 (00:27→21:50)
[2022-01-06] MEDS: sodium chloride 0.9% 1,000 ML 75 ML IV ×2 (02:50→17:13)
[2022-01-06 05:02] LABS: Basophils % 0.5 %; Eosinophils # 0.2 10^3/uL (0.0-0.8); Eosinophils % 2.6 %; Hematocrit 29.2 % (42.0-52.0); Hemoglobin 9.7 g/dL (11.7-16.6); Lymphocytes # 0.8 10^3/uL (0.8-4.8); Lymphocytes % 11.2 %; Mean Corpuscular HGB Conc 33.2 g/dL (30.0-36.0); Mean Corpuscular Hemoglobin 30.7 pg (28.0-34.0); Mean Corpuscular Volume 92.4 fl (80-94); Mean Platelet Volume 10.8 fL (7.4-10.4); Monocytes # 0.5 10^3/uL (0.2-0.9); Monocytes % 6.5 %; Neutrophils # 5.63 10^3/uL (1.8-7.7); Neutrophils % 76.9 %; Nucleated Red Blood Cells % 0 %; Platelet Count 276 10^3/cmm (130-400); Red Blood Count 3.16 10^6/uL (4.1-5.3); Red Cell Distribution Width 14.4 % (12.1-15.1); White Blood Count 7.3 10^3/uL (4.0-10.0)
[2022-01-06 05:16] LABS: Anion Gap 15.1 (5-19); Blood Urea Nitrogen 18 mg/dL (6-20); Calcium 8.8 mg/dL (8.5-10.5); Carbon Dioxide 21 mmol/L (22-29); Chloride 106 mmol/L (98-107); Glomerular Filtration Rate 67.1 mL/min (90-130); Glucose 100 mg/dL (65-115); Osmolality Calculated 288 mOsm/kg (285-295); Potassium 4.1 mmol/L (3.5-5.1); Sodium 138 mmol/L (136-145)
[2022-01-06] MEDS: piperacillin-tazobactam 3.375 GM in sodium chloride 0.9% (plus) 50 ML IV ×3 (06:11→21:54)
[2022-01-06] MEDS: pantoprazole DR 40 mg Tablet PO (08:50)
[2022-01-06] MEDS: amlodipine 5 mg Tablet PO (08:50)
--- NOTE | 2022-01-06 09:10 | CT_ITS ---
WS: [id number] CT LEFT HAND WITH CONTRAST. HISTORY: r/o abscess. Laceration, swelling, induration not improving Technique: All CT scans at [facility] use at least one of these dose optimization techniques: automated exposure control; mA and/or kV adjustment per patient size (includes targeted exams where dose is matched to clinical indication); or iterative reconstruction. Contrast: Omnipaque 350; 100 mL IV. DLP: 120.98 mGy-cm. COMPARISON: None available. Marked soft tissue edema and changes of cellulitis surrounding the dorsal surface of the hand beginni ng at the level of the mid carpal bones and extending inferior to the proximal metacarpals. Most sign ificant soft tissue edema surrounding the first, second and third fingers. There is no focal abscess or abnormal enhancement. No well-circumscribed collection. There is no air within the soft tissues. N o destructive bone lesions. No significant osteoarthritis. CT/CT hand LT w con [id number] IMPRESSION: 1. Diffuse soft tissue edema along the dorsal surface of the wrist and hand. M ost consistent with advanced cellulitis. 2. No abscess. 3. No evidence air in the soft tissue.
[2022-01-06] MEDS: iohexol 350 mg/mL 100 mL Btl IV (10:02)
--- NOTE | 2022-01-06 10:30 | PM.PN ---
Subjective Subjective: redness has resolved around the arm and forearm however hand swelling not improving. pt unable to make a full fist. Vitals/I&O/Wt Last Vital Signs Temp 98.2 F 01/06/22 07:54 Pulse 54 L 01/06/22 07:54 Resp 18 01/06/22 08:50 BP 170/99 01/06/22 07:54 Pulse Ox 99 01/06/22 07:54 O2 Del Method 01/06/22 07:54 01/05/22 01/06/22 01/06/22 22:59 06:59 14:59 Intake Total 736 / 1786 1050 / 2836 50 / 50 Output Total 500 / 500 Balance 236 / 1286 1050 / 2336 50 / 50 Physical Exam Narrative: General: No acute distress, AO x3 Chest: Normal vesicular breath sounds, no added sounds, equal good air entry bilaterally CVS: S1-S2 regular, Abdomen: Soft, nontender, no organomegaly, bowel sounds present Extremities: Left hand swollen, not improved since yesterday however does appear slightly better than admission. forearm and arm redness resolved. Data : 01/06/22 04:32 01/06/22 04:32 Micro: Microbiology 01/03/22 21:45 Urine Culture - Final Urine,Clean Catch A&P Assessment and plan (1) Cellulitis: (2) Lymphangitis: (3) JEROME (acute kidney injury): Plan Admitted today for cellulitis and lymphangitis of the left hand extending up to the forearm. He has been on outpatient Bactrim without any significant improvement. Continue Vanco and Zosyn at this time. switch to oral antibiotics tomorrow JEROME improving. Creatinine 1.2 today. Normalized Hypertension: Add amlodipine 10 mg daily. CPK normal. IV fluid normal saline at 75 cc an hour No hydronephrosis. Renal ultrasound unremarkable. Discussed with radiologist as well. Check Hand CT to r/o underlying abscess. May need I&D Continue above management. Recheck labs tomorrow Attestations Medical Necessity Statement*: Plan to discharge over the next 24 to 48 hours. Patient will need to stay in the hospital in the meantime to continue IV antibiotics. Hand CT to be done today. Coding Level of Care Code Acute Steward/Stewardess Third for [facility] Diagnoses Cellulitis L03.90 Lymphangitis I89.1 JEROME (acute kidney injury) N17.9
[2022-01-06] MEDS: HYDROcodone-acetaminophen 5-325 mg Tablet 1 TAB PO ×2 (13:07→20:02)
[2022-01-06 13:12] LABS: Add Urine Microscopic? NO; Charge for UA Resulting for Rev
[2022-01-06 13:22] LABS: Bilirubin Urine Neg (Negative); Blood Urine Neg (Negative); Glucose Urine UA Norm (Normal); Ketones Urine Negative (Negative); Leukocyte Esterase Urine Negative (Negative); Nitrate Urine Negative (Negative); Protein Urine Neg (Negative); Specific Gravity, Urine 1.005 (1.005-1.030); Urine Appearance Clear (CLEAR); Urine Color Yellow (Yellow); Urobilinogen Urine Norm (Negative); pH Urine 6.5 (5-7)
[2022-01-06 19:02] LABS: Vancomycin Trough 4.1 ug/mL (10-15)
[2022-01-06] MEDS: ondansetron 2 mg/ML SDV 2 mL 4 MG IVP (20:05)
[2022-01-06] MEDS: vancomycin 1,250 MG/250 ML PIGGYBACK 250 MG IV (20:09)
[2022-01-07] VITALS (15 sets, daily range): BP systolic 159–210; BP diastolic 98–126; PULSE 49–63; RESP 16–17; TEMP 36.6–36.8; O2SAT 96–99
[2022-01-07] MEDS: hyDRALAzine 20 mg/mL INJ 1 mL 5 MG IVP (00:31)
[2022-01-07] MEDS: HYDROcodone-acetaminophen 5-325 mg Tablet 1 TAB PO ×3 (00:36→16:57)
[2022-01-07] MEDS: piperacillin-tazobactam 3.375 GM in sodium chloride 0.9% (plus) 50 ML IV ×2 (06:04→16:42)
[2022-01-07 09:43] LABS: Basophils # 0.1 10^3/uL (0.0-0.1); Basophils % 0.8 %; Eosinophils # 0.2 10^3/uL (0.0-0.8); Eosinophils % 2.1 %; Hematocrit 34.6 % (42.0-52.0); Hemoglobin 11.6 g/dL (11.7-16.6); Lymphocytes # 0.7 10^3/uL (0.8-4.8); Mean Corpuscular HGB Conc 33.5 g/dL (30.0-36.0); Mean Corpuscular Hemoglobin 30.7 pg (28.0-34.0); Mean Corpuscular Volume 91.5 fl (80-94); Mean Platelet Volume 10.6 fL (7.4-10.4); Monocytes # 0.6 10^3/uL (0.2-0.9); Monocytes % 7.6 %; Neutrophils # 5.86 10^3/uL (1.8-7.7); Neutrophils % 75.1 %; Nucleated Red Blood Cells % 0 %; Platelet Count 373 10^3/cmm (130-400); Red Blood Count 3.78 10^6/uL (4.1-5.3); Red Cell Distribution Width 13.9 % (12.1-15.1); White Blood Count 7.8 10^3/uL (4.0-10.0)
[2022-01-07] MEDS: amlodipine 10 mg Tablet PO (10:10)
[2022-01-07] MEDS: pantoprazole DR 40 mg Tablet PO (10:10)
[2022-01-07 10:17] LABS: Blood Urea Nitrogen 11 mg/dL (6-20); Calcium 9.3 mg/dL (8.5-10.5); Carbon Dioxide 24 mmol/L (22-29); Chloride 105 mmol/L (98-107); Glomerular Filtration Rate 82.8 mL/min (90-130); Glucose 96 mg/dL (65-115); Osmolality Calculated 293 mOsm/kg (285-295); Sodium 142 mmol/L (136-145)
[2022-01-07 10:18] LABS: Anion Gap 16.9 (5-19)
[2022-01-07 10:19] LABS: Potassium 3.9 mmol/L (3.5-5.1)
--- NOTE | 2022-01-07 10:23 | PC.NURSE ---
dr light notifeied on pt b/p 162/102...pt just took norvasc 10mg...no new orders at this time for b/p control...new order for 1x 400mg ibuprofen
[2022-01-07 10:24] LABS: Slide Review Slide Review Perform
[2022-01-07] MEDS: vancomycin 1,250 MG/250 ML PIGGYBACK 250 MG IV ×2 (10:36→10:54)
[2022-01-07] MEDS: ibuprofen 200 mg Tablet 400 MG PO (10:53)
[2022-01-07 11:09] LABS: C Reactive Protein 52.5 mg/L (0.0-4.9)
--- NOTE | 2022-01-07 11:15 | PM.PN ---
Subjective Subjective: Seen this am. He reports worsening swelling in hand and redness. CRP ordered Vitals/I&O/Wt Last Vital Signs Temp 97.9 F 01/07/22 07:46 Pulse 63 01/07/22 09:54 Resp 16 01/07/22 07:46 BP 162/106 01/07/22 09:54 Pulse Ox 98 01/07/22 07:46 O2 Del Method 01/07/22 07:46 01/06/22 01/07/22 01/07/22 22:59 06:59 14:59 Intake Total 1300 / 1590 50 / 1640 50 / 50 Balance 1300 / 1590 50 / 1640 50 / 50 Physical Exam Narrative: General: No acute distress, AO x3 Chest: Normal vesicular breath sounds, no added sounds, equal good air entry bilaterally CVS: S1-S2 regular, Abdomen: Soft, nontender, no organomegaly, bowel sounds present Extremities: Left hand swollen, worse than yesterday however does appear slightly better than admission. forearm and arm redness resolved. Data : 01/07/22 09:20 01/07/22 09:20 A&P Assessment and plan (1) Cellulitis: (2) Lymphangitis: (3) JEROME (acute kidney injury): Plan Admitted for cellulitis and lymphangitis of the left hand extending up to the forearm. He has been on outpatient Bactrim without any significant improvement. Continue Vanco and Zosyn at this time. switch to oral antibiotics tomorrow JEROME improved. Creatinine normalized Creatinine 1.0 today. Normalized Hypertension: Continue amlodipine 10 mg daily. CPK normal. CRP 390 at admission. Order repeat today Consult orthopedic surgery. Keep pt NPO Check left hand MRI w/o contrast IV fluid normal saline at 75 cc an hour No hydronephrosis. Renal ultrasound unremarkable. Discussed with radiologist as well. Hand CT w contrast did not show air or abscess underlying. Continue above management. Recheck labs tomorrow Attestations Medical Necessity Statement*: COntinue IV abx, mri today . eval by ortho surgery today. Coding Level of Care Code Acute Naturopathic Oncology Provider for [facility] Diagnoses Cellulitis L03.90 Lymphangitis I89.1 JEROME (acute kidney injury) N17.9
--- NOTE | 2022-01-07 12:16 | PC.NURSE ---
heparin held per dr ligth vo due to pt possibly going to surgery
--- NOTE | 2022-01-07 15:29 | PC.NURSE ---
pt iv occluded at 1120 new iv attempted twice by this recorder...also attempt made by student nurse, and ultrasound guided attempt was made by charge nurse without secess...dr light notified at this time she requested that i see in a ICU nurse could come and attempt to get the IV in .
--- NOTE | 2022-01-07 16:44 | P.DS_ITS ---
Discharge Providers Date of Admission: 01/03/22 20:20 Date of Discharge: January 07, 2022 Attending Provider at Admission: Ninfa Deiv MD Attending Provider at Discharge: Francine Lopez MD Diagnoses at Discharge Discharge Diagnosis (1) Cellulitis: Status: Acute (2) Lymphangitis: Status: Resolved (3) JEROME (acute kidney injury): Status: Resolved Reason for Visit Reason for Visit: left hand swelling Brief History: As per Dr. Devi Tyshawn Pichardo is a 41 year old male with a past medical history of hypertension, migraine, does not take any medications pleurodesed past several months, presenting today with 3-day history of left hand swelling.? States that swelling started shortly after obtaining a small cut over his second digit.? This Was from an iron grate on Wednesday.? Thereafter he had some friction by putting his hands repeatedly in his pockets.? 3 days ago he noticed that his hand was swelling up, with swelling erythema and warmth quickly extending over his wrist and forearm.? He also noticed some lymphangitic streaks.? Visited urgent care as outpatient where he was started on Bactrim.? He took Bactrim double strength twice daily on day 1, however he was not satisfied with the speed of improvement therefore increase Bactrim frequency to 1 double strength tablet every 4 hours yesterday. He has also noticed dysuria, some burning in his urine, he is not peeing as much as he usually does.? Typically has nighttime frequency of 8-10 urination episodes, however 2 days ago states he had much less urine output. He has also had a fever, as high as 101 Fahrenheit along with chills at home. No recent animal bites or scratches.? 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 Job involves physically moving the animals, does not typically clean up after the animals.? No aquarium exposure. Hospital Course Hospital Course Patient was kept in the hospital and kept on vancomycin and Zosyn. CRP was trending down. However after 3 days of hospital stay patient's hand swelling was not improving however all of the cellulitis on the arm and forearm had resolved. Patient was asked to keep his hand elevated on [address] hand with contrast was also done which ruled out an underlying abscess. MRI initially was ordered however canceled. Orthopedic surgery also evaluated the patient. It was decided that MRI would not be needed at this point. Patient did end up having some wrinkling of the skin on day of discharge and there was some very mild redness left around his knuckles but overall his hand did improve. He was still unable to make a complete fist however had improved compared to admission. It was decided to discharge patient home to follow-up with orthopedic surgery upcoming Wednesday for reevaluation of the hand. Patient was discharged on linezolid for 7 days and Augmentin for 7 days in addition to that. All questions answered. Patient given strict instructions to come back to the hospital if he worsens. Also at admission he had JEROME with creatinine of 3.6 most likely secondary to Bactrim. Bactrim was stopped and he was given IV fluids. He had good urine output and kidney function returned to normal. Abdoul leylajeanne blood pressure remained elevated during hospital stay. He was started on amlodipine 10 mg daily and hydralazine 25 3 times daily. There was definitely a pain component but even despite having pain medications his pressure remained high. He also required a few doses of IV hydralazine. Patient recommended to follow-up with a primary care doctor and he was set up with a primary care doctor at discharge. Physical Exam Narrative: General: No acute distress, AO x3 Chest: Normal vesicular breath sounds, no added sounds, equal good air entry bilaterally CVS: S1-S2 regular, Abdomen: Soft, nontender, no organomegaly, bowel sounds present Extremities: Erythema and swelling over dorsum of hand. Small superficial wound present. No swelling in metacarpophalangeal joints. No palpable fluctuance over hand. Definitely better compared to admission. All erythema and swelling on arm and forearm have resolved at this point. Minor wrinkling noted at dorsum of hand as well at time of discharge. There is still mild erythema present Discharge Data Studies Completed and Pending Completed Studies During Hospitalization Category Date Time Status CT hand LT w con [id number] Stat Cat Scan 01/06/22 09:10 Completed US renal BI* [id number] Routine Ultrasound 01/03/22 22:46 Completed Pending at discharge Category Date Time Status Blood Culture Stat Lab 01/03/22 19:34 Results Vancomycin Trough Timed Lab 01/08/22 22:00 Ordered Radiology Impressions Renal Ultrasound 01/03/22 22:46 IMPRESSION: 1. Unremarkable urinary bladder. 2. Hydronephrosis. 3. No medical renal disease. Hand CT 01/06/22 09:10 IMPRESSION: 1. Diffuse soft tissue edema along the dorsal surface of the wrist and hand. Most consistent with advanced cellulitis. 2. No abscess. 3. No evidence air in the soft tissue. Laboratory Results WBC 7.8 10^3/uL (4.0-10.0) 01/07/22 09:20 RBC 3.78 10^6/uL (4.1-5.3) L 01/07/22 09:20 Hgb 11.6 g/dL (11.7-16.6) L 01/07/22 09:20 Hct 34.6 % (42.0-52.0) L 01/07/22 09:20 MCV 91.5 fl (80-94) 01/07/22 09:20 MCH 30.7 pg (28.0-34.0) 01/07/22 09:20 MCHC 33.5 g/dL (30.0-36.0) 01/07/22 09:20 RDW 13.9 % (12.1-15.1) 01/07/22 09:20 Plt Count 373 10^3/cmm (130-400) D 01/07/22 09:20 MPV 10.6 fL (7.4-10.4) H 01/07/22 09:20 Neut % (Auto) 75.1 % 01/07/22 09:20 Lymph % (Auto) 9.0 % 01/07/22 09:20 Gil[place] % (Auto) 7.6 % 01/07/22 09:20 Eos % (Auto) 2.1 % 01/07/22 09:20 Baso % (Auto) 0.8 % 01/07/22 09:20 Neut # (Auto) 5.86 10^3/uL (1.8-7.7) 01/07/22 09:20 Lymph # (Auto) 0.7 10^3/uL (0.8-4.8) L 01/07/22 09:20 Gilchrist # (Auto) 0.6 10^3/uL (0.2-0.9) 01/07/22 09:20 Eos # (Auto) 0.2 10^3/uL (0.0-0.8) 01/07/22 09:20 Baso # (Auto) 0.1 10^3/uL (0.0-0.1) 01/07/22 09:20 Nucleated RBC % (auto) 0 % 01/07/22 09:20 Nucleated RBCs # 0.0 /100WBC 01/07/22 09:20 ESR 31 mm/hr (0-10) H 01/03/22 19:18 Sodium 142 mmol/L (136-145) 01/07/22 09:20 Potassium 3.9 mmol/L (3.5-5.1) 01/07/22 09:20 Chloride 105 mmol/L (98-107) 01/07/22 09:20 Carbon Dioxide 24 mmol/L (22-29) 01/07/22 09:20 Anion Gap 16.9 (5-19) 01/07/22 09:20 BUN 11 mg/dL (6-20) 01/07/22 09:20 Creatinine 1.0 mg/dL (0.7-1.2) 01/07/22 09:20 GFR Calculation 82.8 mL/min (90-130) L 01/07/22 09:20 Glucose 96 mg/dL (65-115) 01/07/22 09:20 Calculated Osmolality 293 mOsm/kg (285-295) 01/07/22 09:20 Lactic Acid 0.8 mmol/L (0.5-2.2) 01/03/22 19:18 Calcium 9.3 mg/dL (8.5-10.5) 01/07/22 09:20 Magnesium 2.3 mg/dL (1.7-2.3) 01/05/22 04:23 Total Bilirubin 0.4 mg/dL (0.15-1.2) 01/03/22 19:18 AST 30 U/L (0-40) 01/03/22 19:18 ALT 28 U/L (0-41) 01/03/22 19:18 Alkaline Phosphatase 120 U/L (40-130) 01/03/22 19:18 Creatine Kinase 140 U/L (39-308) 01/04/22 04:56 C-Reactive Protein 52.5 mg/L (0.0-4.9) H 01/07/22 09:20 Total Protein 7.7 g/dL (6.6-8.7) 01/03/22 19:18 Albumin 3.8 g/dL (3.5-5.2) 01/03/22 19:18 Globulin 3.9 g/dL (1.3-4.6) 01/03/22 19:18 Urine Color Yellow (Yellow) 01/06/22 12:24 Urine Appearance Clear (CLEAR) 01/06/22 12:24 Urine pH 6.5 (5-7) 01/06/22 12:24 Ur Specific [place] 1.005 (1.005-1.030) 01/06/22 12:24 Urine Protein Neg (Negative) 01/06/22 12:24 Urine Glucose (UA) Norm (Normal) 01/06/22 12:24 Urine Ketones Negative (Negative) 01/06/22 12:24 Urine Blood Neg (Negative) 01/06/22 12:24 Urine Nitrate Negative (Negative) 01/06/22 12:24 Urine Bilirubin Neg (Negative) 01/06/22 12:24 Urine Urobilinogen Norm mg/dL (Negative) 01/06/22 12:24 Ur Leukocyte Esterase Negative (Negative) 01/06/22 12:24 Urine RBC 5-10 /hpf (0-2) H 01/03/22 21:45 Urine WBC 10-15 /hpf (0-5) H 01/03/22 21:45 Ur Squamous Epith Cells 0-4 /hpf (0-5) H 01/03/22 21:45 Amorphous Sediment Trace /hpf 01/03/22 21:45 Urine Bacteria Trace /hpf (NONE) 01/03/22 21:45 Hyaline Casts Rare /lpf 01/03/22 21:45 Coarse Granular Casts Rare /lpf 01/03/22 21:45 Urine Mucus 1+ /hpf 01/03/22 21:45 Vancomycin Trough 4.1 ug/mL (10-15) L 01/06/22 18:00 Vitals Last Vital Signs Temp 98.2 F 01/07/22 15:37 Pulse 61 01/07/22 15:37 Resp 17 01/07/22 15:37 BP 159/99 01/07/22 15:37 Pulse Ox 98 01/07/22 15:37 O2 Del Method 01/07/22 15:37 Discharge Plan Discharge Patient Disposition: Home Condition: Stable Prescriptions: New amlodipine 10 mg Tablet 10 mg PO DAILY 30 Days Qty: 30 0RF docusate sodium 100 mg Capsule 100 mg PO BEDTIME 7 Days Qty: 7 0RF hydralazine 25 mg tablet 25 mg PO TID 30 Days Qty: 90 0RF amoxicillin-pot clavulanate 875-125 mg tablet 1 tab PO BID 7 Days Qty: 14 0RF linezolid 600 mg tablet 600 mg PO BID 7 Days Qty: 14 0RF hydrocodone-acetaminophen 5-325 mg tablet 1 tab PO Q6H PRN (Reason: pain) 3 Days Qty: 10 0RF Held allopurinol 100 mg Tablet 100 mg PO DAILY PRN (Reason: gout) Hold Instructions: see pcp before resuming Discharge Orders: Discharge Order (Routine); Ordered 01/07/22 Ordered By: Francine Lopez Referrals: Carlos Almonte MD [Physician] - 01/13/22 1:15 pm Ren Gong MD [Physician] - 01/12/22 10:15 am Discharge Diet: Low Salt Discharge Activity: Increase activity as tolerated Patient Instructions: Opioid Safety Activity Restrictions/Additional Instructions: Please ensure you stay compliant to antibiotics. Please follow up with Dr. Almonte, orthopedic surgeon in his office upcoming Wednesday. If your hand swelling/redness worsens, please return to ER immediately. Your blood pressure has been elevated this hospital stay. I have started you on 2 blood pressure medications. Please take them as directed. Please monitor your blood pressure at home and take to your primary care doctor to further adjust your medications. Discharge Attestations Time Spent in Discharge Care*: less than 30 min Quality Metrics Clinical Quality Measures [ No reported AMI, CVA or VTE this stay] Coding Level of Care Code Acute Chg DC note Diagnoses Cellulitis L03.90 Lymphangitis I89.1 JEROME (acute kidney injury) N17.9
--- NOTE | 2022-01-07 17:55 | P.CONIM_ITS ---
Providers/Reason For Consult Consulting Physician/Specialty*: Carlos Almonte MD; orthopedic surgery Reason for Consult*: Cellulitis left hand Attending Physician: Francine Lopez MD History of Present Illness History of Present Illness Tyshawn Pichardo is a 41 year old male with a history of problems in his left hand that began Wednesday of last week. He describes working at the [employer]. He hit his hand on a gate sustaining a superficial laceration over the dorsum of his ulnar hand. He states by that evening he noted erythema and swelling. He was seen in our urgent care where he was started on Bactrim however failed to show improvement. He was presented to our emergency room on 01/03/2022 with a 2-day history of fevers and chills and erythema and swelling in the hand. He was admitted to the hospital and has been treated with vancomycin and Zosyn. Initially he showed good improvement with a erythema from his improving from his arm and forearm and less swelling in his hand however this morning he woke up with more hand swelling. Orthopedics is consulted for possible surgical intervention. Medications/Allergies Home Medications Medication Instructions Recorded Confirmed Last Taken Type allopurinol 100 mg tablet 100 mg PO DAILY PRN gout 01/04/22 01/04/22 Unknown History amlodipine 10 mg tablet 10 mg PO DAILY 30 days #30 tabs 01/07/22 Unknown Rx amoxicillin 875 mg-potassium 1 tab PO BID 7 days #14 tabs 01/07/22 Unknown Rx clavulanate 125 mg tablet docusate sodium 100 mg capsule 100 mg PO BEDTIME 7 days #7 caps 01/07/22 Unknown Rx hydralazine 25 mg tablet 25 mg PO TID 30 days #90 tabs 01/07/22 Unknown Rx hydrocodone 5 mg-acetaminophen 325 1 tab PO Q6H PRN pain 3 days #10 01/07/22 Unknown Rx mg tablet tabs linezolid 600 mg tablet 600 mg PO BID 7 days #14 tabs 01/07/22 Unknown Rx Allergies Allergy/AdvReac Type Severity Reaction Status Date / Time No Known Allergies Allergy Verified 02/14/20 10:25 Current Medications Generic Name Dose Route Start Last Admin Trade Name Freq PRN Reason Stop Dose Admin Acetaminophen 650 mg 01/03/22 22:46 01/05/22 19:51 Acetaminophen 325 Mg Tablet PO 650 mg Q6H PRN Administration Mild/Mod Pain Or Temp >/= 101 Hydrocodone Bitart/Acetaminophen 1 tab 01/06/22 12:30 01/07/22 16:57 Hydrocodone-Acetaminophen 5-325 Mg Tablet PO 1 tab Q4H PRN Administration MODERATE PAIN Amlodipine Besylate 10 mg 01/06/22 09:00 01/07/22 10:10 Amlodipine 10 Mg Tablet PO 10 mg DAILY THEODORE Administration Docusate Sodium 100 mg 01/06/22 21:00 01/06/22 20:10 Docusate Sodium 100 Mg Capsule PO Not Given BEDTIME THEODORE Heparin Sodium (Porcine) 5,000 unit 01/03/22 23:00 01/07/22 12:16 Heparin 5,000 Unit/Ml Inj 1 Ml SUBCUT Not Given Q12H THEODORE Sodium Chloride 1,000 mls @ 75 mls/hr 01/03/22 23:00 01/06/22 17:13 Sodium Chloride 0.9% IV 75 mls/hr .[id number] THEODORE Administration Piperacillin Sod/Tazobactam 50 mls @ 12.5 mls/hr 01/04/22 06:00 01/07/22 16:42 Sod 3.375 gm/ Sodium Chloride IV 12.5 mls/hr Q8H THEODORE Administration Protocol Vancomycin/PEG/NADA/Lysine/Water 1,250 mg in 250 mls @ 250 mls/hr 01/07/22 11:00 01/07/22 17:24 Vancocin IV Infused Q12H THEODORE Infusion Morphine Sulfate 2 mg 01/03/22 22:46 01/06/22 21:50 Morphine 4 Mg/Ml Sdv 1 Ml IVP 2 mg Q4H PRN Administration SEVERE PAIN Ondansetron HCl 4 mg 01/03/22 22:46 01/06/22 20:05 Ondansetron 2 Mg/Ml Sdv 2 Ml IVP 4 mg Q8H PRN Administration vomiting, or N/V if npo Pantoprazole Sodium 40 mg 01/04/22 09:00 01/07/22 10:[address] 40 Mg Tablet PO 40 mg DAILY THEODORE Administration PFSH Acute PFSH: Medical History Hypertension Surgical History History of surgery on lower extremity Social History Smoking and tobacco status: never smoked Vitals/I&O/Wt Last Vital Signs Temp 98.2 F 01/07/22 17:03 Pulse 61 01/07/22 17:03 Resp 17 01/07/22 17:03 BP 159/99 01/07/22 17:03 Pulse Ox 98 01/07/22 17:03 O2 Del Method 01/07/22 15:37 01/07/22 01/07/22 01/07/22 06:59 14:59 22:59 Intake Total 50 / 1640 50 / 50 250 / 300 Balance 50 / 1640 50 / 50 250 / 300 Physical Exam Narrative: Dirk's left hand is examined. There is erythema and swelling over the dorsum of the hand. There is a small superficial wound just proximal to the dorsal ring finger. I cannot really see any swelling in the metacarpal phalangeal joints. He can fully extend his digits and reach 180 degree total arc of motion. He can dorsiflex the wrist 70 degrees and palmar flex 70 degrees. there is pain only with extremes of flexion. I can appreciate no palpable fluctuance over the hand. I can express no drainage. From the wound. His sensation is intact to light touch. Data : 01/07/22 09:20 01/07/22 09:[address]: Radiologist's impression: I reviewed his CT scan report of the left hand. There is soft tissue edema over the wrist and hand consistent with cellulitis. There is no abscess. A&P Assessment and plan (1) Cellulitis: Tyshawn has a cellulitis of the left hand. There is no fluctuance or drainage is suggest abscess. The CT scan reveals no evidence of abscess. At this point I told him it would be difficult to recommend surgery. I told him that there is significant concern we could consider an MRI. I did warn him that was a presurgical tool and all his exam and studies to date show no evidence of absces s. He has no evidence of joint sepsis or purulent flexor tenosynovitis. I told him we could try to convert to oral antibiotics as he has improved and continue to follow this clinically as another option. He would like to try IV antibiotics for now. I told him I will see him back in my clinic beginning the next week for repeat clinical exam. Certainly if things deteriorate he is encouraged to contact the clinic. I told him particularly worrisome signs would be recurrent fevers, increased swelling, loss of motion in the digits or wrist or any significant increase in pain. Coding Level of Care Code Acute Glass Fitter for [facility] Diagnoses Cellulitis L03.90
== END 2022-01-07 18:08 | disposition home or self-care (01) | DRG 603 ==
LOC: ER 20:19 → MEDSURG 20:31
PROVIDERS: Admitting Provider Student in an Organized Health Care Education/Training Program; Emergency Provider Emergency Medicine; Visit Provider Internal Medicine
DX: L03.113 Cellulitis of right upper limb (principal); N17.9 Acute kidney failure, unspecified; I10 Essential (primary) hypertension; T36.8X5A Adverse effect of other systemic antibiotics, initial encounter; R30.0 Dysuria; R39.12 Poor urinary stream; R33.9 Retention of urine, unspecified
CPT/HCPCS: 36415; 73201; 76770; 80048; 80053; 80202; 81001; 81003; 82550; 83605; 83735; 85025; 85651; 86140; 87040; 87086; 96365; 96367; 96372; 96375; 99285; J0360; J1644; J2270; J2405; J2543; J3370; J7030; J7040; Q9967

== ENCOUNTER → 2022-01-12 11:25 | Outpatient (BNVA) | payer OTHER, SELFPAY | PROVIDERS: Visit Provider Family Medicine | DX: Z09 Encounter for follow-up examination after completed treatment for conditions other than malignant neoplasm (principal); I10 Essential (primary) hypertension; L03.114 Cellulitis of left upper limb; M62.838 Other muscle spasm; G44.209 Tension-type headache, unspecified, not intractable | CPT/HCPCS: 80053 ==

== ENCOUNTER 2022-01-15 11:58 | Day surgery (SDC) | payer OTHER, SELFPAY ==
[2022-01-14 15:00] VITALS: BMI 30.7
[2022-01-15] VITALS (13 sets, daily range): BP systolic 137–207; BP diastolic 78–114; PULSE 58–70; RESP 12–18; TEMP 36.4; O2SAT 93–99
[2022-01-15] MEDS: sodium chloride 0.9% 1,000 ML 30 ML IV (12:30)
--- NOTE | 2022-01-15 12:53 | ANES.PREANE2 ---
Pre-Anesthetic Assessment Height/Weight: Height 1.8 m Weight 99.79 kg O2 Del Method 01/15/22 12:16 Preop Diagnosis: Abscess left hand Operation Date: 01/15/22 13:35 Proposed Procedures p I&D left hand/ 10979 L03.114(Left) - Carlos Almonte MD Familial anesthetic complications: Violent after ketamine Was Beta Joaquín taken within 24 hours: N/A Was Clonidine taken within 24 hours: N/A Last intake: Intake Last Liquid Date 02/10/22 Last Liquid Time 23:30 Last Solid Date 02/10/22 Last Solid Time 23:30 Social No alcohol and No tobacco Exam alert, oriented x 3, clear to auscultation bilaterally and regular rate & rhythm Airway Mallampati: Class IV Dentition: caps CV/HEM Hypertension Anesthetic Plan ASA status: 2 Anesthesia: MAC Risk of > 500 ml blood loss (7ml/kg in children): No Medications/Allergies Home Medications Medication Instructions Recorded Confirmed Last Taken Type allopurinol 100 mg tablet 100 mg PO DAILY PRN gout 01/04/22 01/14/22 Unknown History amlodipine 10 mg tablet 10 mg PO DAILY 30 days #30 tabs 01/07/22 01/15/22 1 Day Ago Rx ~01/14/22 hydrocodone 5 mg-acetaminophen 325 1 tab PO Q4H PRN pain 7 days #30 01/13/22 01/15/22 1 Day Ago Rx mg tablet tabs ~01/14/22 Allergies Allergy/AdvReac Type Severity Reaction Status Date / Time No Known Allergies Allergy Verified 01/15/22 12:22 [facility] Anesthesia Medical History Cellulitis of left hand Hypertension Surgical History History of surgery on lower extremity Family History Mother Diabetes Psychiatric illness MDD Father Hypertension Social History Smoking and tobacco status: never smoked Alcohol intake: current Alcohol intake frequency: holidays/special occasions only Adopted: No Caregiver/support person: No Lives independently: Yes Housing: House Marital status: Number of children: 3 Current occupational status: employed Data Anesthesia Cardiac Studies: No Data to Display
--- NOTE | 2022-01-15 13:17 | W.PM.OPSUD ---
Surgery/Procedure H&P Update DATE OF PROCEDURE: January 15, 2022 DATE H&P PERFORMED: 01/13/22 H&P UPDATE INFORMATION: I have reviewed H&P completed within last 30 days PREOP DIAGNOSIS: Abscess left hand PLANNED PROCEDURE: Operation Date: 01/15/22 13:35 Proposed Procedures p I&D left hand/ 40137 L03.114(Left) - Carlos Almonte MD
--- NOTE | 2022-01-15 15:41 | PM.OP ---
Operative Report Date of procedure: January 15, 2022 Pre-op diagnosis: Preop Diagnosis Abscess left hand Post-op diagnosis: same Procedure done: Incision and drainage left hand Pathology: none sent Pathology: Routine and anaerobic cultures of abscess fluid Surgeon: Carlos Almonte Anesthesia: General Estimated blood loss (mL): 2 Tourniquet time (min): 4 Findings: Cloudy fluid-filled abscess was seen in the deep subcutaneous tissues over the index finger metacarpal distally. No necrotic tissue was identified. No joint involvement was noted. Condition: stable Disposition: PACU Procedure: The patient was taken to the operating room and a general anesthesia was not attained. His left upper extremity was prepped and draped in the usual fashion with the left hand and forearm exposed. A timeout was performed. A 3 cm long dorsal incision was made distally between the index and long finger metacarpal rays dissection was carried down through the skin and subcutaneous fat revealing a fluctuant cloudy fluid collection. Fluid was sent for routine and anaerobic cultures. No necrotic material or foreign bodies were identified. The wound was irrigated with approximately 300 L of saline. It was packed with a moist Kerlix and covered with sterile 4 x 4's. Compressive web roll and an Ollie wrap were applied. The patient was taken to recovery room in stable condition.
[2022-01-15] MEDS: fentaNYL 50 mcg/mL INJ 2mL IVP (15:56)
--- NOTE | 2022-01-15 16:02 | ANE.PACU2 ---
Inpatient post-anesthesia follow up: Airway intact: Yes Vital signs: Temperature 97.8 Pulse Rate 58 Respiratory Rate 12 Blood Pressure 158/78 Pulse Oximetry 98 Oxygen Delivery Me thod Room Air Oxygen Flow Rate Fraction of Inspir ed Oxygen Hydration adequate: Yes Nausea and vomiting: No Pain level: 1 Mental status: Baseline
[2022-01-15] MEDS: hyDRALAzine 20 mg/mL INJ 1 mL (16:12)
[2022-01-15] MEDS: HYDROmorphone 1 mg/mL INJ 1 mL 0.5 MG IVP (16:15)
[2022-01-15] MEDS: HYDROcodone-acetaminophen 5-325 mg Tablet 1 TAB PO (16:55)
== END 2022-01-15 15:17 | disposition home or self-care (01) ==
PROVIDERS: Visit Provider Orthopaedic Surgery
PROC: (CPT 25028; principal; 2022-01-15 13:25)
DX: L02.512 Cutaneous abscess of left hand (principal); I10 Essential (primary) hypertension
CPT/HCPCS: 25028; 87070; 87075; 87205; J0360; J1100; J1170; J2250; J2405; J2704; J3010; J7030